=== PATIENT | male | born 1960 ===

== ENCOUNTER 2021-09-18 06:11 | Outpatient (REF) | payer OTHER, SELFPAY ==
[2021-09-18 06:59] LABS: Hematocrit 30.9 % (42.0-52.0); Hemoglobin 10.1 g/dl (14.0-18.0); Mean Corpuscular HGB Conc 32.7 g/dl (31.0-36.0); Mean Corpuscular Volume 91.7 fL (80.0-98.0); Mean Platelet Volume 11.3 fL (9.4-12.4); Platelet Count 273 X10*3/uL (160-400); Red Blood Count 3.37 X10*6/uL (4.60-5.80); Red Cell Distribution Width 13.4 % (11.0-16.0)
[2021-09-18 07:24] LABS: Alanine Aminotransferase 15 U/L (0-40); Albumin Level 3.4 g/dL (3.5-5.0); Alkaline Phosphatase 66 U/L (39-117); Anion Gap 13 (12-20); Aspartate Amino Transferase 13 U/L (5-37); Bilirubin Total 0.5 mg/dL (0.0-1.0); Blood Urea Nitrogen 38 mg/dL (9-16); Carbon Dioxide 23 mmol/L (22-29); Chloride 107 mmol/L (96-108); Estimated Glomerular Filt Rate 45; Glucose Random 115 mg/dL (60-115); Potassium 4.4 mmol/L (3.3-5.1); Sodium 139 mmol/L (135-145); Total Protein 6.1 g/dL (6.5-8.0)
== END 2021-09-18 06:12 | disposition home or self-care (01) ==
LOC: HO.MMNH1L 06:11
PROVIDERS: Visit Provider Family Medicine
DX: I95.9 Hypotension, unspecified (principal); R41.82 Altered mental status, unspecified; E78.5 Hyperlipidemia, unspecified
CPT/HCPCS: 36415; 80053; 85027

== ENCOUNTER 2021-09-25 00:31 | Outpatient (REF) | payer OTHER, SELFPAY ==
[2021-09-25 08:02] LABS: Hematocrit 29.3 % (42.0-52.0); Hemoglobin 9.7 g/dl (14.0-18.0); Mean Corpuscular HGB Conc 33.1 g/dl (31.0-36.0); Mean Corpuscular Hemoglobin 30.1 pg (27.0-33.0); Mean Platelet Volume 10.9 fL (9.4-12.4); Platelet Count 231 X10*3/uL (160-400); Red Blood Count 3.22 X10*6/uL (4.60-5.80); Red Cell Distribution Width 13.6 % (11.0-16.0); White Blood Count 8.6 X10*3/uL (4.8-10.8)
[2021-09-25 08:16] LABS: Anion Gap 12 (12-20); Blood Urea Nitrogen 22 mg/dL (9-16); Calcium 8.9 mg/dL (8.4-10.2); Carbon Dioxide 26 mmol/L (22-29); Chloride 105 mmol/L (96-108); Estimated Glomerular Filt Rate 42; Glucose Random 115 mg/dL (60-115); Potassium 4.4 mmol/L (3.3-5.1); Sodium 139 mmol/L (135-145)
[2021-09-25 20:48] LABS: Appearance Urine CLEAR; Color Urine YELLOW; Glucose Urine UA NEG (NEG); Leukocyte Esterase Urine NEG (NEG); Nitrite Urine NEG (NEG); PH 5.5 (5.0-8.0); Urine Blood TRACE (NEG); Urine Ketones NEG (NEG); Urine Protein 2+ MG/DL (NEG-TRACE)
[2021-09-25 20:58] LABS: Bacteria Urine TRACE /LPF; Squamous Epithelial Cell Urine TRACE /LPF; WBC Clumps Urine NOTED
[2021-09-25 21:00] LABS: Creatinine Urine 75.53 mg/dL
[2021-09-25 21:14] LABS: Microalbum/Creatinine Ratio Ur 1012.8 ug/mg cr
== END 2021-09-25 00:32 | disposition home or self-care (01) ==
LOC: HO.MMNH1L 00:31
PROVIDERS: Visit Provider Family Medicine
DX: R41.82 Altered mental status, unspecified (principal); R79.9 Abnormal finding of blood chemistry, unspecified; I10 Essential (primary) hypertension; E78.5 Hyperlipidemia, unspecified
CPT/HCPCS: 36415; 80048; 81001; 82043; 85027; 87086

== ENCOUNTER 2021-09-26 07:13 | Outpatient (REF) | payer OTHER, SELFPAY ==
[2021-09-26 08:07] LABS: Anion Gap 13 (12-20); Blood Urea Nitrogen 22 mg/dL (9-16); Carbon Dioxide 25 mmol/L (22-29); Chloride 106 mmol/L (96-108); Estimated Glomerular Filt Rate 41; Glucose Random 119 mg/dL (60-115); Iron 71 mcg/dL (45-160); Percent Iron Saturation 26 % (15-50); Potassium 4.7 mmol/L (3.3-5.1); Sodium 139 mmol/L (135-145); Total Iron Binding Capacity 278 mcg/dL (228-428); Unsaturated Iron Binding 207 ug/dL
[2021-09-26 08:20] LABS: Vitamin D 25-OH Total 31.5 ng/mL (>30)
[2021-09-27 16:16] LABS: Calcium (PTHI) 8.7 mg/dL (8.6-10.3); PTHI 30 pg/mL (14-64)
== END 2021-09-26 07:14 | disposition home or self-care (01) ==
LOC: HO.MMNH1L 07:13
PROVIDERS: Visit Provider Family Medicine
DX: I48.91 Unspecified atrial fibrillation (principal); I95.9 Hypotension, unspecified
CPT/HCPCS: 36415; 80048; 82306; 83540; 83970

== ENCOUNTER 2021-10-02 00:24 | Outpatient (REF) | payer OTHER, SELFPAY ==
[2021-10-02 07:00] LABS: Hemoglobin 10.1 g/dl (14.0-18.0); Mean Corpuscular HGB Conc 33.7 g/dl (31.0-36.0); Mean Corpuscular Hemoglobin 30.6 pg (27.0-33.0); Mean Corpuscular Volume 90.9 fL (80.0-98.0); Mean Platelet Volume 10.8 fL (9.4-12.4); Platelet Count 266 X10*3/uL (160-400); Red Cell Distribution Width 13.4 % (11.0-16.0); White Blood Count 9.4 X10*3/uL (4.8-10.8)
[2021-10-02 07:21] LABS: Anion Gap 10 (12-20); Blood Urea Nitrogen 20 mg/dL (9-16); Carbon Dioxide 28 mmol/L (22-29); Chloride 105 mmol/L (96-108); Estimated Glomerular Filt Rate 41; Glucose Random 119 mg/dL (60-115); Potassium 4.6 mmol/L (3.3-5.1); Sodium 138 mmol/L (135-145)
== END 2021-10-02 00:25 | disposition home or self-care (01) ==
LOC: HO.MMNH1L 00:24
PROVIDERS: Visit Provider Family Medicine
DX: I95.9 Hypotension, unspecified (principal); R41.82 Altered mental status, unspecified; E78.5 Hyperlipidemia, unspecified
CPT/HCPCS: 36415; 80048; 85027

== ENCOUNTER 2021-10-09 01:35 | Outpatient (REF) | payer OTHER, SELFPAY | END 2021-10-09 01:36 | disposition home or self-care (01) | LOC: HO.MMNH1L 01:35 | PROVIDERS: Visit Provider Family Medicine | DX: Z13.89 Encounter for screening for other disorder (principal) ==